=== PATIENT | male | born 1955 | race Two or more races ===

== ENCOUNTER 2020-02-02 07:39 | Emergency (ER) | payer OTHER ==
[~2020-02-02] VITALS: Ht 185.4 cm; Wt 95.3 kg
[2020-02-02] MEDS ORDERED: IMODIUM A-D2 M2 (08:04)
[2020-02-02] MEDS ORDERED: OMEPRAZOLE40 MG (08:04)
[2020-02-02] MEDS ORDERED: METFORMIN HCL500 MG (08:05)
[2020-02-02] MEDS ORDERED: VOLTAREN-XR100 MG PO (13:33)
[2020-02-02] MEDS ORDERED: ULTRAM50 MG PO (13:33)
== END 2020-02-02 13:59 | disposition home or self-care (01) ==
LOC: ER 07:39
DX: I86.1 Scrotal varices (principal); N50.812 Left testicular pain

== ENCOUNTER 2023-09-11 09:45 | Inpatient (IN) | payer OTHER ==
[~2023-09-11] VITALS: Ht 182.9 cm; Wt 88.5 kg
[~2023-09-11 09:45] MED LIST: IMODIUM A-D2 M2; METFORMIN HCL500 MG; OMEPRAZOLE40 MG; ULTRAM50 MG PO; VOLTAREN-XR100 MG PO
[2023-09-11] MEDS ORDERED: COZAAR50 MG PO (10:11)
[2023-09-11] MEDS ORDERED: JARDIANCE10 MG PO (10:12)
[2023-09-17] MEDS ORDERED: BUPIVACAINE HCL 30 ML VIAL IJ ONE (09:15)
[2023-09-17] MEDS ORDERED: CEFTRIAXONE SODIUM 2,000 MG VIAL IV ONE (09:15)
[2023-09-17] MEDS ORDERED: METRONIDAZOLE/SODIUM CHLORIDE 500 MG/100 ML PIGGYBACK IV ONE (09:15)
[2023-09-17] MEDS ORDERED: DEXTROSE 50 % IN WATER 0.5 G/ML VIAL IV PRN ×2 (09:45→11:00)
[2023-09-17] MEDS ORDERED: OxyCODONE HCL 5 MG TABLET (ROXICODONE) PO PRN (09:45)
[2023-09-17] MEDS ORDERED: ONDANSETRON HCL 2 MG/ML VIAL IV PRN (09:45)
[2023-09-17] MEDS ORDERED: RINGERS SOLUTION,LACTATED 1,000 ML IV SCH (09:45)
[2023-09-17] MEDS ORDERED: MORPHINE SULFATE 4 MG/ML CARTRIDGE IV PRN (09:45)
[2023-09-17] MEDS ORDERED: ENALAPRILAT DIHYDRATE 1.25 MG/ML VIAL IV PRN (11:00)
[2023-09-17] MEDS ORDERED: INSULIN LISPRO 1,000 UNIT/10 ML UNITS SUBCUTANEO PRN (11:00)
[2023-09-17] MEDS ORDERED: HYOSCYAMINE SULFATE 0.125 MG TAB.SUBL SL SCH (13:00)
[2023-09-17] MEDS ORDERED: ACETAMINOPHEN 500 MG GEL..CAP PO SCH (14:00)
[2023-09-17] MEDS ORDERED: hydrALAZINE HCL 20 MG VIAL ONE (14:09)
[2023-09-17 15:04] LABS: HEMATOCRIT 41.8 % (39.0-48.0); HEMOGLOBIN 14.2 g/dL (13-16.00); MEAN CELL VOLUME 90.6 fL (80.0-100.00); MEAN CORPUSCULAR HEMOGLOBIN 30.7 pg (27.00-32.0); MEAN CORPUSCULAR HGB CONC 33.9 g/dl (32.0-36.0); PLATELET COUNT 286 K/uL (150-450); RED BLOOD COUNT 4.61 M/uL (4.00-6.00); RED CELL DISTRIBUTION WIDTH 13.2 % (11.5-14.5)
[2023-09-17 15:06] LABS: ALBUMIN 3.8 gm/dL (3.4-5.0); CALCIUM 9.3 mg/dL (8.5-10.1); CREATININE SERUM 0.89 mg/dL (0.70-1.30); GFR 84.5; PHOSPHOROUS 3.1 mg/dL (2.5-4.9); POTASSIUM 4.94 mEq/L (3.5-5.1)
[2023-09-17] MEDS ORDERED: GABAPENTIN 300 MG CAPSULE PO SCH (17:00)
[2023-09-17] MEDS ORDERED: POLYETHYLENE GLYCOL 3350 17 GM BLIST.PACK PO SCH (17:00)
[2023-09-17] MEDS ORDERED: FAMOTIDINE/PF 20 MG/2 ML VIAL IV PUSH SCH (21:00)
[2023-09-18 01:35] LABS: HEMATOCRIT 35.5 % (39.0-48.0); HEMOGLOBIN 12.3 g/dL (13-16.00); MEAN CELL VOLUME 89.1 fL (80.0-100.00); MEAN CORPUSCULAR HEMOGLOBIN 30.8 pg (27.00-32.0); MEAN CORPUSCULAR HGB CONC 34.6 g/dl (32.0-36.0); PLATELET COUNT 287 K/uL (150-450); RED BLOOD COUNT 3.98 M/uL (4.00-6.00); RED CELL DISTRIBUTION WIDTH 13.1 % (11.5-14.5)
[2023-09-18 01:45] LABS: ALBUMIN 3.1 gm/dL (3.4-5.0); CALCIUM 8.1 mg/dL (8.5-10.1); CREATININE SERUM 0.76 mg/dL (0.70-1.30); GFR 101.39; MAGNESIUM 1.6 mg/dL (1.8-2.4); PHOSPHOROUS 2.6 mg/dL (2.5-4.9); POTASSIUM 3.98 mEq/L (3.5-5.1)
[2023-09-18 07:33] LABS: HEMATOCRIT 33.7 % (39.0-48.0); HEMOGLOBIN 11.9 g/dL (13-16.00); MEAN CELL VOLUME 90.2 fL (80.0-100.00); MEAN CORPUSCULAR HEMOGLOBIN 31.7 pg (27.00-32.0); MEAN CORPUSCULAR HGB CONC 35.2 g/dl (32.0-36.0); PLATELET COUNT 273 K/uL (150-450); RED BLOOD COUNT 3.74 M/uL (4.00-6.00); RED CELL DISTRIBUTION WIDTH 12.9 % (11.5-14.5)
[2023-09-18] MEDS ORDERED: MAGNESIUM SULFATE IN WATER 50 ML IV NR (08:00)
[2023-09-18 08:17] LABS: PARTIAL THROMBOPLASTIN TIME 32.5 SECONDS (22.0-34.0); PROTHROMBIN TIME 12.4 SECONDS (9.0-11.5)
[2023-09-18 08:19] LABS: CALCIUM 8.5 mg/dL (8.5-10.1); CREATININE SERUM 0.63 mg/dL (0.70-1.30); GFR 125.9; MAGNESIUM 1.9 mg/dL (1.8-2.4); PHOSPHOROUS 2.4 mg/dL (2.5-4.9); POTASSIUM 3.48 mEq/L (3.5-5.1)
[2023-09-18] MEDS ORDERED: AMINOCAPROIC ACID 250 MG/ML VIAL IV STA (08:41)
[2023-09-18] MEDS ORDERED: POTASSIUM CHLORIDE 20MEQ/100ML H2O PB IV NR (08:45)
[2023-09-18] MEDS ORDERED: SOD FERRIC GLUC COMPLX/SUCROSE 62.5 MG in 0.9 % SODIUM CHLORIDE 50 ML IV SCH (09:00)
[2023-09-18] MEDS ORDERED: LOSARTAN POTASSIUM 25 MG TABLET PO SCH (09:00)
[2023-09-18] MEDS ORDERED: Cyanocobalamin/Mecobalamin 1 TAB.SL SL SCH (09:00)
[2023-09-18] MEDS ORDERED: TAMSULOSIN HCL 0.4 MG CAP PO SCH (09:00)
[2023-09-18 09:34] LABS: COL EPI 94 SECONDS (82-175)
[2023-09-18] MEDS ORDERED: POTASSIUM PHOS,M-BASIC-D-BASIC 3 MM/ML VIAL IV NR (12:00)
[2023-09-18] MEDS ORDERED: AMINOCAPROIC ACID 20 MG/ML ML IV SCH (14:00)
[2023-09-18] MEDS ORDERED: ENOXAPARIN SODIUM 40 MG/0.4 ML SYRINGE SUBCUTANEO SCH (17:00)
[2023-09-18] MEDS ORDERED: PATIENTS OWN MEDICATION (MEDICAMENTO EN PISO) PO SCH (17:00)
[2023-09-19 06:59] LABS: HEMATOCRIT 30.5 % (39.0-48.0); HEMOGLOBIN 10.8 g/dL (13-16.00); MEAN CELL VOLUME 89.5 fL (80.0-100.00); MEAN CORPUSCULAR HEMOGLOBIN 31.6 pg (27.00-32.0); MEAN CORPUSCULAR HGB CONC 35.3 g/dl (32.0-36.0); PLATELET COUNT 267 K/uL (150-450); RED BLOOD COUNT 3.41 M/uL (4.00-6.00); RED CELL DISTRIBUTION WIDTH 13.5 % (11.5-14.5)
[2023-09-19 07:40] LABS: CALCIUM 8.3 mg/dL (8.5-10.1); CREATININE SERUM 0.63 mg/dL (0.70-1.30); GFR 125.9; MAGNESIUM 2.4 mg/dL (1.8-2.4); POTASSIUM 3.94 mEq/L (3.5-5.1)
[2023-09-19 07:59] LABS: PHOSPHOROUS 1.8 mg/dL (2.5-4.9)
[2023-09-19] MEDS ORDERED: ENOXAPARIN SODIUM 40 MG/0.4 ML SYRINGE SUBCUTANEO SCH (09:00)
[2023-09-19] MEDS ORDERED: POTASSIUM PHOS,M-BASIC-D-BASIC 3 MM/ML VIAL IV NR (12:00)
[2023-09-20] MEDS ORDERED: ACETAMINOPHEN500 M2 PO (09:41)
[2023-09-20] MEDS ORDERED: INTESTINEX680 M1 PO (09:41)
[2023-09-20] MEDS ORDERED: NEURONTIN300 MG PO (09:41)
== END 2023-09-20 11:01 | disposition home or self-care (01) | DRG 330 ==
LOC: O/R 09-17 06:00 → SURH 09-17 09:45 → SURG 09-17 10:39 → SURH 09-17 17:15 → SURG 09-20 11:01
PROVIDERS: Internal Medicine Geriatric Medicine; ADMIT Surgery; ATTEND Surgery
PROC: 07BC4ZX Excision of Pelvis Lymphatic, Percutaneous Endoscopic Approach, Diagnostic (ICD-10-PCS; 2023-09-17)
PROC: 0DTF4ZZ Resection of Right Large Intestine, Percutaneous Endoscopic Approach (ICD-10-PCS; principal; 2023-09-17 17:15)
DX: C18.4 Malignant neoplasm of transverse colon (principal); K92.1 Melena; R59.0 Localized enlarged lymph nodes; K59.09 Other constipation

== ENCOUNTER 2023-11-29 06:15 | Day surgery (SDC) | payer OTHER ==
[~2023-11-29 06:15] MED LIST changes: +ACETAMINOPHEN500 M2 PO; +COZAAR50 MG PO; +INTESTINEX680 M1 PO; +JARDIANCE10 MG PO; +NEURONTIN300 MG PO
[2023-11-29] MEDS ORDERED: CEFAZOLIN SODIUM 1,000 MG VIAL ONE (09:22)
[2023-11-29] MEDS ORDERED: BUPIVACAINE HCL/MPF 0.5% 30ML VIAL ONE (09:22)
[2023-11-29] MEDS ORDERED: LIDOCAINE HCL 1%/EPINEPHRINE 20ML VIAL IJ ONE (09:22)
[2023-11-29] MEDS ORDERED: TRAM1TAB98 PO (09:27)
[2023-11-29] MEDS ORDERED: HEPARIN SODIUM,PORCINE 500 UNITS/5 ML VIAL IV ONE (09:33)
== END 2023-11-29 11:50 | disposition home or self-care (01) ==
LOC: CIR.AMB 06:15
PROVIDERS: ATTEND Surgery
DX: C18.7 Malignant neoplasm of sigmoid colon (principal); R59.0 Localized enlarged lymph nodes; K92.1 Melena; K59.09 Other constipation; Z91.011 Allergy to milk products; E11.9 Type 2 diabetes mellitus without complications
CPT/HCPCS: 36561; C1751

== ENCOUNTER 2024-08-28 09:28 | Day surgery (SDC) | payer OTHER ==
[2024-08-24 10:21] VITALS: BP 163/75
[2024-08-24 11:46] LABS: ALBUMIN 4.1 gm/dL (3.4-5.0); BILIRUBIN TOTAL 0.5 mg/dL (0.3-1.2); CALCIUM 9.1 mg/dL (8.5-10.1); CREATININE SERUM 0.79 mg/dL (0.70-1.30); GFR 96.69; GLOBULINA 3.5 G/DL (2.4-3.5); POTASSIUM 4.14 mEq/L (3.5-5.1); TOTAL PROTEIN 7.6 gm/dL (6.4-8.2)
[~2024-08-28] VITALS: Ht 182.9 cm; Wt 88.5 kg
[~2024-08-28 09:28] MED LIST changes: +LOSARTAN; +TRAM1TAB98 PO; +XARELTO10 MG PO
[2024-08-28] MEDS ORDERED: CEFAZOLIN SODIUM 1,000 MG VIAL ONE (10:32)
[2024-08-28] MEDS ORDERED: BUPIVACAINE HCL/Mpf 0.5% 10ML VIAL ONE (12:36)
[2024-08-28] MEDS ORDERED: HEPARIN SODIUM,PORCINE/PF 100 UNIT/ML SYRINGE IV ONE (12:36)
[2024-08-28] MEDS ORDERED: LIDOCAINE HCL 1%/EPINEPHRINE 20ML VIAL IJ ONE (12:36)
[2024-08-28] MEDS ORDERED: TRAM1TAB98 PO (12:42)
== END 2024-08-28 16:35 | disposition home or self-care (01) ==
LOC: CIR.AMB 09:28
PROVIDERS: ATTEND Surgery
DX: T82.594A Other mechanical complication of infusion catheter, initial encounter (principal); C18.4 Malignant neoplasm of transverse colon; Z91.011 Allergy to milk products